=== PATIENT | female | born 1990 | race Caucasian/White ===

== ENCOUNTER 2021-12-24 11:38 | Outpatient (REF) | payer MEDICAID, SELFPAY | END 2021-12-24 11:39 | disposition home or self-care (01) | LOC: HO.SH 11:38 | PROVIDERS: Visit Provider Internal Medicine | DX: Z01.118 Encounter for examination of ears and hearing with other abnormal findings (principal); H93.293 Other abnormal auditory perceptions, bilateral | CPT/HCPCS: 92550; 92552; 92556; 92588 ==

== ENCOUNTER 2022-01-07 12:54 | Outpatient (RCR) | payer MEDICAID, SELFPAY ==
--- NOTE | 2022-03-09 16:47 | MHC.SP.ADU ---
Addendum entered and electronically signed by Aiyana Ayala MA, CCC-CHANGEOVER OPERATOR 03/09/22 17:01: As a clinical solar panel installation supervisor, I have reviewed and agree with the content of this report. Original Note: Referring provider: Gloria Wyatt MD Reason for Referral: Testing cognition Type of Treatment: 32007 Standardized Cognitive Performance Testing, per hour Date of Plan of Treatment: 01/07/22 Onset of Symptoms/Illness: 89 Date Treatment Started: 01/07/22 Medical Diagnosis: Borderline Personality Disorder, Bipolar Disorder, General Anxiety Disorder, Depression, PTSD, Developmental disorder/delay Primary Speech Language Diagnosis: R41.841 Cognitive communication disorder History Raulito is a 31 year old bilingual female referred for a speech and language evaluation. Raultio has spoken both Camb[place]ian and [place] since and reports [place] Citizen as her primary language. Raulito was evaluated by audiology on 12/24/21 at [facility] which found hearing in both ears to be of typical hearing status. The audiological team referred her for a speech and language cognitive evaluation to assist in determining the source of Raulito?s reported listening difficulties. Raulito received her associate?s degree in liberal arts and began her bachelor?s in psychology. Raulito reports she put school on hold because of her difficulties with memory and managing stress. She reports that she stopped reaching out to her instructor and advisor. Raulito is not currently working and reported feeling anxiety about beginning work because she doesn't want to do it wrong. Raulito?s goal is to resume her bachelor?s degree in May 2022. During the interview process, Raulito mentioned she felt nervous and anxious which she believes manifests as burping and hiccups. When asked about her concerns, Raulito responded ?I don?t even know where to begin and start.? Raulito reported challenges in memory, attention, understanding (receptive language), speaking (expressive language), and problem solving. Raulito reports having medical diagnoses of borderline personality disorder, bipolar disorder, generalized anxiety disorder, depression, PTSD, and developmental disorder/delay. 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 12/24/21 audiological exam found hearing testing to be WNL. Medication List: Paroxetine Buproprion *Other medications illegible on patient intake form Social History: Employment Status: Unemployed Highest level of education obtained: Completed Associate Deg. Current Living Situation: Lives in [facility] [facility] with her daugher and her partner. Sometimes her partner's child lives there. Assistive Devices: Glasses/Contacts Comment: Glasses not present during evaluation. Patient reports using glasses to read and to use phone. Past Speech Language Therapy: Patient reported having a speech and hearing evaluation after giving at 18 years old and being referred to ENT. Patient reported that she never went to ENT because she was too scared. Other Therapies Seen in Current Calendar Year: None Reported Speech, Language, Cognition difficulties: Understanding Attention Memory Cognition Speaking Problem Solving On patient intake form, Raulito reported frequently having difficulty with expressing thoughts, problem solving, and focusing/attention. She reported difficulty being understood by others, reading/writing, orientation/memory, and following directions. She also reported having difficulty with fluent speech/stuttering when emotional. Quality of Life: Raulito reports her difficulties having a large impact on her social and academic life including relationships, university, and employment. Patient Stated Goal of Speech-Language Therapy: To improve quality of life and refine memory and attention skills to be able return to school Assessment Raulito stated my memory sucks and that she only remembers the bad stuff. She provided the examples that she may forget what she is doing when she enters another room or forget what she is cleaning. Throughout the interview and evaluation process, Raulito was observed to respond to a different question than was asked by the clinician. Several times Raulito stated that she dissociated and requested the clinician to repeat a question or to remind her what she was doing. This was noted to happen more frequently as time passed. In one instance, Raulito stated Right now I forgot what I was talking about. I don't know what I'm talking about. Another time, she listed the word apple for the first time and then stated I just said that right? Raulito reports that in a quiet environment, she can ?hear clear? and can hear ?the smallest sounds.? Raulito reports that while having background noise is soothing and provides her privacy in her current living condition, it also makes it more difficult for her to hear. She stated that when she attempts to paraphrase what someone else says, Most of the time it's wrong. Raulito reports saying words backwards or incorrectly and provided an example of telling her daughter you have a butt on your hole instead of a hole on your butt when she noticed a hole in her daughter's pants. Raulito reports she has an easier time when people are willing to learn and understand. Throughout the evaluation Raulito was observed to close her eyes, rub her head and eyes in concentration, have hiccups, and put head down on table. These behaviors demonstrated a possible indication of anxiety and nerves. COGNITIVE LINGUISTIC: RBANS: The Repeatable Battery for the Assessment of Neuropsychological Status (RBANS-Updated Form A) assesses aspects of cognitive memory, language, and attention skills. The RBANS is considered a screening battery for cognitive function and is repeatable for the purpose of evaluating any changes in function. It is intended for use with adolescents and adults, ages 12 to 89 years. This evaluation was conducted in [place] per Raulito?s request and she was informed she could provide responses in either [place] or Cambodian. Composite domains assessed in this evaluation are: Immediate Memory, Visuospatial/Constructional, Language, Attention, and Delayed Memory. Assessed domains and their scores are summarized below: Immediate Memory: This subtest assesses the individual's ability to remember information immediately after it is presented. Index score: 69 Percentile: 2 Interpretation: Extremely Low Visuospatial/Constructional: This subtest assesses the individual's ability to perceive spatial relations and to construct a spatially accurate copy of a drawing. Index score: 75 Percentile: 5 Interpretation: Borderline Language: This subtest assesses the individual's ability to respond verbally to either naming or retrieving learned material. Index score: 104 Percentile: 61 Interpretation: Average Attention: This subtest assesses the individual's capacity to remember and manipulate both visually and orally presented information in short-term memory storage Index score: 68 Percentile: 2 Interpretation: Extremely Low Delayed Memory: This subtest assesses the individual's anterograde memory capacity. Low scores indicate difficulties with recognition and retrieval of information from long-term memory stores. Index score: 83 Percentile: 13 Interpretation: Low Average Overall Score: Total scale: 75 Percentile: 5 Interpretation: Borderline ANALYSIS: Raulito's performance on language tasks including picture naming and semantic fluency was stronger than other evaluation domains. Raulito was able to name 9 out of 10 images presented and name 23 different fruits and vegetables within 60 seconds. Iness performance was noticeably stronger with delayed recognition tasks as compared to recall tasks. When provided with a 10 word list read aloud by the clinician, Raulito correctly recalled 4 out of 10 words when asked to recite the list. When Raulito was provided the cue, Was ___ on the list? she correctly identified 9 out of 10 words. Raulito listed words which were phonetically similar but were not on the presented word list. For example, Raulito believed the words ?pattern? and ?pocket? were part of the word list that actually included the words ?package,? ?powder,? ?carpet,? and ?market.? Raulito was administered a story memory task, in which she was read aloud a short story by the clinician then asked to recall the details. This was done immediately after completion and following a short delay. Raulito consistently remembered the month ?September? as phonemically similar month, ?July.? Additionally, Raulito added details to her retell of the story that were part of previous test stimuli. Cloze phrases and phonemic cues helped to support recall. For example, the clinician provided the cue, two hotels and a res___ and Raulito immediately responded restaurant. This demonstrates that the use of memory strategies may support Raulito?s immediate and delayed memory. It is important to note that Inses underlying medical diagnoses could be contributing to or exacerbating her cognitive linguistic difficulties. Research has indicated that a variety of psychological diagnoses may have an impact on an individual?s overall cognitive functioning as well as their performance on the RBANS. Diagnoses mentioned in the research include anxiety, bipolar disorder, borderline personality disorder, and depression. Research has suggested that symptoms of anxiety and depression can have a negative effect on overall cognitive functioning. Individuals with a history of depression and diagnosis of borderline personality disorder were found to have a greater level of impairment on immediate memory and attention in comparison with controls. The diagnosis of borderline personality disorder was also noted to negatively impact delayed memory. Research on bipolar disorder indicated that individuals with bipolar disorder perform lower on the entirety of the RBANS, aside from picture naming and list recognition subtests, when compared to control subjects (Noam, Clara). Marcelle Santacruz (1998). Repeatable Battery for the Assessment of Neuropsychological Status [Manual]. Santiago PA: Izabella. AUDITORY PROCESSING SKILLS: TAPS-3 (The Test of Auditory Processing Skills) is an assessment of auditory skills that are necessary for the development, use, and understanding of language commonly utilized in academic and everyday activities. It is intended for use in children and adolescents ages 4:0 to 18:11. Because the TAPS-3 normative data is not reflective of individuals over the age of 21, this tool was administered informally to gather additional information for further screening of Adamaris auditory processing skills. The following subtests were administered: Number Memory Reversed: Raulito correctly repeated back strings of numbers in reverse order, two to four numbers long, with 83% accuracy. With 5 or 6 digits, she recalled 3 to 4 correct digits out of order. Sentence Memory: Raulito was asked to repeat back sentences of varying lengths after listening to the clinician?s model. Raulito was able to repeat back sentences of 4 or less words without error. Longer sentences (up to 20 words) resulted in increased errors. Raulito often omitted specific details when restating sentences. For example, Raulito recalled The paint is on the top shelf and omitted of the cupboard and by the window. Auditory Comprehension: Raulito was asked to answer questions pertaining to auditory passages of increasing length and complexity read aloud to her. This task is intended to assess how well the individual understands spoken information. Raulito made frequent errors when recalling names. At times Raulito replaced a target name with a phonemically similar name, generated an unrelated name, or stated ?I forgot? or ?somebody.? Raulito presented with greater challenges as length and complexity of passages increased to 3 or more sentences. Auditory Reasoning: This task is intended to assess higher-order linguistic processing related to implied messages (i.e. understanding jokes, riddles, inferences, and abstractions). Raulito demonstrated difficulty with test items consisting of expressions. Expressions were sometimes interpreted more literally. For example, when provided a sentence that included the expression ?in the dark,? Adamaris responded that the electricity went out. When information was not provided directly, Raulito presented with difficulty understanding the implied meaning of a passage. For example, when provided the passage, ?After Luc found out that he was allergic to pet fur, he asked his parents for a pair of pet frogs. His parents said that was a good idea.? Raulito was then asked, ?Why would Luc?s parents like his idea of getting frogs?? Raulito responded, ?In case one dies.? Chantal Xavier & Merlyn Byrne (2005). The Test of Auditory Processing Skills - Third Edition [Manual]. MAGDA Cheek: Academic Therapy Publications Impressions and Recommendations Summary: Based on the results of this evaluation, Raulito presents with moderate to severe cognitive linguistic impairment marked by difficulties in the area of immediate memory, delayed memory, and attention. Raulito?s underlying psychological diagnoses may be contributing to or exacerbating these areas of cognitive linguistic difficulties. Raulito would benefit from outpatient speech and language therapy to support improvement in these areas and to support Raulito in her goals of improving her quality of life and academic goals. Raulito has demonstrated the use of prompts and cues has the potential improve her performance in cognitive linguistic tasks. Raulito?s goal to return to university to complete her bachelor?s degree provides her with high motivation for speech and language services. Impact on Daily Function/Activity Limitations: Daily Activities: Moderate Interpersonal Interactions: Moderate Education: Moderate Employment: Moderate Community: Moderate Prognosis for Improvement: Good Recommendation for Speech Therapy: Outpatient Speech Therapy Frequency/Duration: 1x weekly x 12 weeks Date Range for Service Requested: Time to Reassess: 6 months Halfway Goals: Raulito will improve attention, immediate memory, and delayed memory. Short Term Goals: Raulito will independently recall 2-3 memory strategies with 100% accuracy. Raulito will listen to short paragraph (3-5 sentences) and answer comprehension questions with 80% accuracy (immediate recall) when provided with minimal assistance and no more than one repetition. Raulito will listen to short paragraph (3-5 sentences) and answer comprehension questions with 80% accuracy after 5 minute delay when provided with minimal assistance and no repetitions. Raulito will recall list of 5 items presented to her orally with 80% accuracy when provided with moderate assistance. Raulito will listen to auditory information and make note of pertinent information with no more than 2 repetitions in 80% of trials in a near distraction-free environment. Recommended Referrals to be Discussed with Primary Care Provider: Audiological Evaluation Comment: Audiology team at [facility] recommended a follow-up hearing screening in 6 months Recommend to continue with psychologist due to psychoemotional concerns Patient Education Completed: Yes Patient/Caregiver Education: Described Results of Evaluation It was a pleasure to meet and work with Raulito. If you have any questions about the contents of this report, do not hesitate to contact me at [phone] or [email or web address] Auditor Clinican/Clinical Fellow: Yes: Ginna Moreno M.A., CF-CHANGEOVER OPERATOR Supervisory Statement: Yes Speech Language Pathologist: Aiyana Ayala M.A., CCC-CHANGEOVER OPERATOR
== END 2022-03-12 13:30 | disposition still patient (30) ==
LOC: HO.SH 12:54
PROVIDERS: Visit Provider Internal Medicine
DX: R41.841 Cognitive communication deficit (principal)
CPT/HCPCS: 96125

== ENCOUNTER 2022-07-17 13:47 | Emergency (ER) | payer MEDICAID, SELFPAY ==
--- NOTE | ~2022-07-17 | XR_ITS ---
EXAMINATION: XR FOOT, RIGHT CLINICAL INFORMATION: Great toe and foot injury COMPARISON: None TECHNIQUE: AP, lateral, and oblique views of the right foot. FINDINGS: Minimally displaced oblique fracture of the distal portion of the great toe proximal phalanx. No definite intra-articular extension. There is a 7 mm lucent lesion of bone with narrow zone of transition in the proximal phalanx at the level of the fracture. No matrix mineralization. No periostitis or osseous destruction. No other fracture. Joint spaces are maintained. XR/XR foot RT 2V IMPRESSION: 1. Minimally displaced fracture of the distal portion of the great toe proximal phalanx. 2. 7 mm lucent lesion of bone in the proximal phalanx with nonaggressive features. Differential considerations include enchondroma or bone cyst most likely. No aggressive margin features. Suggest attention on follow-up.
--- NOTE | 2022-07-17 13:50 | ED_ITS ---
HPI - General Adult General Chief complaint: Extremity Injury, Lower <ALE Burger - Last Filed: 07/17/22 13:54> Stated complaint: Right Big toe Swollen <ALE Burger - Last Filed: 07/17/22 13:54> Time Seen by Provider: 07/17/22 14:12 <ALE Burger - Last Filed: 07/17/22 13:54> Source: patient <Jenny Smith CNP - Last Filed: 07/17/22 15:11> Mode of arrival: ambulatory <Jenny Smith CNP - Last Filed: 07/17/22 15:11> Limitations: no limitations <Jenny Smith CNP - Last Filed: 07/17/22 15:11> History of Present Illness HPI narrative: Patient is a 32-year-old female who presents emergency department for evaluation of traumatic right great toe pain. She reports at 1200 her toe was stepped on and she heard a loud pop. She looked at her toe and it appeared to be deformed so she pulled it straight thinking this would help. She continues to have severe pain. Pain is made worse with weight-bearing and with dependent resting of the lower extremity in a sitting position. <Jenny Smith CNP - Last Filed: 07/17/22 15:11> Related Data Allergies/adverse reactions: Allergies Allergy/AdvReac Type Severity Reaction Status Date / Time amoxicillin [AMOXICILLIN] Allergy Unknown HIVES Verified 07/17/22 13:51 <ALE Burger - Last Filed: 07/17/22 13:54> Review of Systems Review of Systems: Yes all other systems are reviewed and are negative <Jenny Smith CNP - Last Filed: 07/17/22 15:11> PMFSH Past Medical History Attestation statement: The following information was validated with the patient. <Jenny Smith CNP - Last Filed: 07/17/22 15:11> Source: old records reviewed <Jenny Smith CNP - Last Filed: 07/17/22 15:11> Social History Social History: Social History Advance Directives: No Advance Directives Information Provided: Yes <ALE Burger - Last Filed: 07/17/22 13:54> Physical Exam ED Vital Signs: Vital Signs - 24 hr 07/17/22 13:51 Temperature 98.5 F Pulse Rate 88 Respiratory Rate 16 Blood Pressure 119/71 Pulse Oximetry 97 Oxygen Delivery Method Room Air BMI result Body Mass Index 22.3 <ALE Burger - Last Filed: 07/17/22 13:54> Vital Signs - 24 hr 07/17/22 13:51 Temperature 98.5 F Pulse Rate 88 Respiratory Rate 16 Blood Pressure 119/71 Pulse Oximetry 97 Oxygen Delivery Method Room Air BMI result Body Mass Index 22.3 <Jenny Smith CNP - Last Filed: 07/17/22 15:11> Appearance: Alert.?Oriented to person, place and time. No acute distress.?Normal affect. CVS: Heart sounds normal. Normal heart rate and rhythm.? Pulses normal.?? Respiratory: No respiratory distress.? Lung sounds clear to auscultation bilaterally?? Skin: Skin warm and dry.? Normal skin color.? Extremities: No lower extremity edema.? No calf ttp?right great toe with bruising localized swelling, localized swelling and erythema over the distal 1st through 3rd metatarsals. Neuro: Moves all extremities spontaneously. Sensation intact bilaterally. Ambulates with antalgic gait <Jenny Smith CNP - Last Filed: 07/17/22 15:11> Course Course Course Narrative: RME performed by Magda Rodriguez PA-C. Patient is a 32 year old female presenting to the emergency department with right great toe pain. Patient states that her toe was stepped on and she heard a loud pop. Patient states she is continuing to have pain today. XR ordered. Patient placed back in the waiting room pending results and room availability. <ALE Burger - Last Filed: 07/17/22 13:54> Medical Decision Making Medical Decision Making MDM Narrative: Patient is a 32-year-old female who presents emergency department for evaluation of traumatic right great toe pain. Reviewed XR imaging obtained from RME which is consistent with minimally displaced fracture of the distal portion of the great toe proximal phalanx. First and second digit kasandra taped, placed in a postop shoe. She has not yet taken any acetaminophen or ibuprofen, she does not prefer to take any medications or anything that may be sedating. Discussed follow-up with orthopedics. Reviewed worrisome signs and symptoms that would warrant re-evaluation in the emergency department. All questions were answered. Departed in stable condition. <Jenny Lambert RAQUEL Smith - Last Filed: 07/17/22 15:11> Differential Diagnosis Differential Diagnoses: The differential diagnosis associated with the presentation includes (Fracture, dislocation, contusion of the toe, tendon injury) <Jenny Trippsantiago Smith CNP - Last Filed: 07/17/22 15:11> Independent Interpretation I performed an independent interpretation of an: Plain X-Ray <Jenny Trippsantiago Smith CNP - Last Filed: 07/17/22 15:11> Radiology Impression Discussion of test interpretation with radiology: I have reviewed the radiologist's reading. (I have personally interpreted x-ray imaging and agree with radiologist impression) <Jenny Lambert RAQUEL Smith - Last Filed: 07/17/22 15:11> Radiologist Impression: XR/XR foot RT 2V IMPRESSION: 1.? Minimally displaced fracture of the distal portion of the great toe proximal phalanx. 2.? 7 mm lucent lesion of bone in the proximal phalanx with nonaggressive features. Differential considerations include enchondroma or bone cyst most likely. No aggressive margin features. Suggest attention on follow-up. <Jennyabelino Smith CNP - Last Filed: 07/17/22 15:11> Prescription Management I considered prescription management with: Pain Medication <Jennyabelino Smith CNP - Last Filed: 07/17/22 15:11> Discharge Plan Discharge Clinical Impression: Closed fracture of great toe of right foot <ALE Burger - Last Filed: 07/17/22 13:54> Patient Disposition: Home, Self-Care <ALE Burger - Last Filed: 07/17/22 13:54> Instructions: Toe Fracture (ED), Post Surgical Shoe (ED) <ALE Burger Last Filed: 07/17/22 13:54> Additional Instructions: Apply ice to the area for 10-15 minutes 4-6 times daily. Elevate the foot when possible, avoid prolonged sitting Use the shoe as provided any time standing walking You can take ibuprofen 200 mg, 3 tablets (600mg) every 6-8 hours as needed for pain, in addition to Tylenol 500 mg, 2 tablets (1,000mg) every 4-6 hours as needed for pain, but not to exceed 3 doses daily (3,000mg). Contact orthopedic office first thing Tuesday morning to arrange for a follow-up visit. <ALE Burger - Last Filed: 07/17/22 13:54> Referrals: Luzma Bermudez PA-C [Physician Child And Family Services Specialist] - <ALE Burger - Last Filed: 07/17/22 13:54>
[2022-07-17 13:51] VITALS: BP 119/71; PULSE 88; RESP 16; TEMP 36.9; O2SAT 97; BMI 22.3
== END 2022-07-17 15:36 | disposition home or self-care (01) ==
PROVIDERS: Emergency Provider Emergency Medicine
DX: S92.421A Displaced fracture of distal phalanx of right great toe, initial encounter for closed fracture (principal); W50.0XXA Accidental hit or strike by another person, initial encounter; Y93.9 Activity, unspecified; Y92.9 Unspecified place or not applicable; Y99.9 Unspecified external cause status
CPT/HCPCS: 73620; 99283

== ENCOUNTER 2022-08-02 16:49 | Outpatient (REF) | payer MEDICAID, SELFPAY ==
--- NOTE | ~2022-08-02 | XR_ITS ---
EXAMINATION: XR FOOT, RIGHT CLINICAL INFORMATION: Pain in foot. COMPARISON: None TECHNIQUE: AP, lateral, and oblique views of the right foot. FINDINGS: Again visualized is a pathological fracture involving the distal and proximal phalanx 1st digit. There is a round lucency in the distal segment of proximal phalanx where the fracture traverses through. There is overlapping of fracture fragments on the lateral view. Mild soft tissue swelling is seen. No additional bony abnormality seen. XR/XR foot RT min 3V IMPRESSION: Pathologic fracture distal end proximal phalanx 1st digit with mild soft tissue swelling. There is a round lucency in the distal segment of proximal phalanx where the fracture traverses through. No major change from recent right foot exam 07/17/2022.
== END 2022-08-02 16:50 | disposition home or self-care (01) ==
LOC: HO.HOSX 16:49
PROVIDERS: Visit Provider Physician Assistant
DX: S92.411A Displaced fracture of proximal phalanx of right great toe, initial encounter for closed fracture (principal)
CPT/HCPCS: 73630; 99202

== ENCOUNTER 2022-08-18 10:10 | Outpatient (RCR) | payer MEDICAID, SELFPAY ==
--- NOTE | 2022-08-18 11:55 | MHC.PT.EP ---
[facility] [place] Office [place] Office [place] Office [address] Bhakta [address] [phone] F: [phone] F: [phone] F: [phone] F: [phone] Physical Therapy Plan of Care Date of Evaluation: Date of Surgery: Diagnosis: closed fracture of the great toe on the R foot. Assessment: Patient is a 32 year old R handed female who presents with s/s consistent with closed fracture of great toe or R foot. 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 Patient past medical history includes borderline personality disorder, asthma, learning disability. Current impairments include pain, posture, ROM, strength, balance, activity tolerance and functional mobility. Functional limitations include decreased ability to walk, stand, dance, sit, sleep and perform all standing activities. Patient is motivated with good rehab potential. Skilled PT will address impairments and functional limitations in order to achieve goals. Frequency and Duration: The patient will be seen 2x/week for 5 weeks Short Term Goals: I with HEP - 2 weeks Full pain free AROM - 3 weeks symmetrical gait mechanics with shoe - 3 weeks Heel Gummer Goals: Strength 4+/5 grossly - 5 weeks restore PLOF without increased pain - 5 weeks TTP absent - 5 weeks. Treatment Plan: Modalities to reduce pain, spasms and effusion. Manual therapy to restore motion and function. Therapeutic exercise to improve strength and flexibility. Neuromuscular re-education for posture and balance. Therapeutic activities to return to functional activities of daily living. Electronically signed by: James Adler PT Please sign and return to therapist. Thank you for your referral.
--- NOTE | 2022-11-02 07:29 | MHC.PT.DC ---
[facility] [place] Office [place] Office [place] Office [address] Jannet Bhakta [address] [phone] F: [phone] F: [phone] F: [phone] F: [phone] Physical Therapy Discharge Report Diagnosis: closed fracture of the great toe on the R foot. Date of Surgery: Date of Evaluation: 08/18/22 Date of Discharge: 09/03/22 Treatments to Date: 1 Cancellations to Date: No Shows to Date: Discharge Status: Patient Elected to Stop Discharge Summary: Did not return after evaluation. Patient is a 32 year old R handed female who presents with s/s consistent with closed fracture of great toe or R foot. 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 Patient past medical history includes borderline personality disorder, asthma, learning disability. Current impairments include pain, posture, ROM, strength, balance, activity tolerance and functional mobility. Functional limitations include decreased ability to walk, stand, dance, sit, sleep and perform all standing activities. Patient is motivated with good rehab potential. Skilled PT will address impairments and functional limitations in order to achieve goals. Electronically signed by: James Adler, PT Please sign and return to therapist. Thank you for your referral.
== END 2022-11-02 07:29 | disposition home or self-care (01) ==
LOC: HO.PTCHIC 10:10
PROVIDERS: PCP Physician Assistant; Visit Provider Physician Assistant
DX: S92.401A Displaced unspecified fracture of right great toe, initial encounter for closed fracture (principal)
CPT/HCPCS: 97110; 97162

== ENCOUNTER 2022-11-11 11:00 | Outpatient (RCR) | payer MEDICAID, OTHER, SELFPAY | END 2023-05-17 13:13 | disposition home or self-care (01) | LOC: HO.SH 11:00 | PROVIDERS: Visit Provider Internal Medicine | DX: R41.841 Cognitive communication deficit (principal) | CPT/HCPCS: 92507 ==

== ENCOUNTER 2023-07-01 11:00 | Outpatient (RCR) | payer OTHER, SELFPAY ==
--- NOTE | 2023-04-18 14:10 | MHC.SL.SOA ---
Referring Provider: Gloria Wyatt MD Reason for Referral: Testing cognition Date of Plan of Treatment:01/07/22 Onset of Symptoms/Illness:89 Date Treatment Started:01/07/22 Medical Diagnosis: Primary Speech Language Diagnosis:R41.841 Cognitive communication disorder Number of Authorized Visits Remaining: Authorization End Date:04/21/23 Reason for Visit:Distance Visit using synchronous video Subjective:Raulito is a 32 year old bilingual Kazakh-Luxembourgish female. Raulito reports she is a simultaneous bilingual with Kazakh as her primary language. Raulito was evaluated by audiology on 12/24/21 at [facility] which found hearing in both ears to be of typical hearing status. Raulito was evaluated by speech on 01/07/22 and began intervention in February 2022. Raulito took a break from speech therapy roughly December-February 2023. She started speech therapy again at the end of February 2023. Raulito received her associate?s degree in liberal arts and began her bachelor?s in psychology. Raulito reports she put school on hold because of her difficulties with memory and managing stress. She reports that she stopped reaching out to her instructor and advisor. Raulito is not currently working and reported feeling anxiety about beginning work because she doesn't want to do it wrong. Raulito?s goal is to resume her bachelor?s degree in May 2022. During the interview process, Raulito mentioned she felt nervous and anxious which she believes manifests as burping and hiccups. When asked about her concerns, Raulito responded ?I don?t even know where to begin and start.? Raulito reported challenges in memory, attention, understanding (receptive language), speaking (expressive language), and problem solving. Raulito reports having medical diagnoses of borderline personality disorder, bipolar disorder, generalized anxiety disorder, depression, PTSD, and developmental disorder/delay. Raulito arrived two minutes late to today's session. She was in positive spirits. Objective: This clinician reviewed and updated goals in discussion w/ Raulito. Raulito and this clinician agreed that current goals are all still appropriate to target in speech therapy sessions. RBANS scores from December 2021 and September 2022 were also discussed/compared. Raulito showed improvement in the following domains: immediate memory, visuospatial/constructional, attention, and delayed memory. Plan to incorporate spaced retrieval for memory. Raulito reported that she has gotten involved with a dance center. She expressed having difficulty with longer dance sequences and is looking for this to be incorporated into her goals. Plan to incorporate visuospatial skills. Assessment: DECEMBER 2022 RBANS: (Subtest: Index score) Immediate memory: 81 Visuospatial/Constructional: 78 Language:87 Attention: 85 Delayed Memory: 91 Total scale: December COGNITIVE LINGUISTIC: RBANS: The Repeatable Battery for the Assessment of Neuropsychological Status (RBANS-Updated Form A) assesses aspects of cognitive memory, language, and attention skills. The RBANS is considered a screening battery for cognitive function and is repeatable for the purpose of evaluating any changes in function. It is intended for use with adolescents and adults, ages 12 to 89 years. This evaluation was conducted in Kazakh per Raulito?s request and she was informed she could provide responses in either Kazakh or Luxembourgish. Composite domains assessed in this evaluation are: Immediate Memory, Visuospatial/Constructional, Language, Attention, and Delayed Memory. Assessed domains and their scores are summarized below: Immediate Memory: This subtest assesses the individual's ability to remember information immediately after it is presented. Index score: 69 Percentile: 2 Interpretation: Extremely Low Visuospatial/Constructional: This subtest assesses the individual's ability to perceive spatial relations and to construct a spatially accurate copy of a drawing. Index score: 75 Percentile: 5 Interpretation: Borderline Language: This subtest assesses the individual's ability to respond verbally to either naming or retrieving learned material. Index score: 104 Percentile: 61 Interpretation: Average Attention: This subtest assesses the individual's capacity to remember and manipulate both visually and orally presented information in short-term memory storage Index score: 68 Percentile: 2 Interpretation: Extremely Low Delayed Memory: This subtest assesses the individual's anterograde memory capacity. Low scores indicate difficulties with recognition and retrieval of information from long-term memory stores. Index score: 83 Percentile: 13 Interpretation: Low Average Overall Score: Total scale: 75 Percentile: 5 Interpretation: Borderline ANALYSIS: Raulito's performance on language tasks including picture naming and semantic fluency was stronger than other evaluation domains. Raulito was able to name 9 out of 10 images presented and name 23 different fruits and vegetables within 60 seconds. Raulito?s performance was noticeably stronger with delayed recognition tasks as compared to recall tasks. When provided with a 10 word list read aloud by the clinician, Raulito correctly recalled 4 out of 10 words when asked to recite the list. When Raulito was provided the cue, Was ___ on the list? she correctly identified 9 out of 10 words. Raulito listed words which were phonetically similar but were not on the presented word list. For example, Raulito believed the words ?pattern? and ?pocket? were part of the word list that actually included the words ?package,? ?powder,? ?carpet,? and ?market.? Raulito was administered a story memory task, in which she was read aloud a short story by the clinician then asked to recall the details. This was done immediately after completion and following a short delay. Raulito consistently remembered the month ?May? as phonemically similar , ?July.? Additionally, Raulito added details to her retell of the story that were part of previous test stimuli. Cloze phrases and phonemic cues helped to support recall. For example, the clinician provided the cue, two hotels and a res___ and Raulito immediately responded restaurant. This demonstrates that the use of memory strategies may support Raulito?s immediate and delayed memory. It is important to note that Raulito?s underlying medical diagnoses could be contributing to or exacerbating her cognitive linguistic difficulties. Research has indicated that a variety of psychological diagnoses may have an impact on an individual?s overall cognitive functioning as well as their performance on the RBANS. Diagnoses mentioned in the research include anxiety, bipolar disorder, borderline personality disorder, and depression. Research has suggested that symptoms of anxiety and depression can have a negative effect on overall cognitive functioning. Individuals with a history of depression and diagnosis of borderline personality disorder were found to have a greater level of impairment on immediate memory and attention in comparison with controls. The diagnosis of borderline personality disorder was also noted to negatively impact delayed memory. Research on bipolar disorder indicated that individuals with bipolar disorder perform lower on the entirety of the RBANS, aside from picture naming and list recognition subtests, when compared to control subjects (Noam, Clara). Marcelle Santacruz (1998). Repeatable Battery for the Assessment of Neuropsychological Status [Manual]. [place] GA: Izabella. AUDITORY PROCESSING SKILLS: TAPS-3 (The Test of Auditory Processing Skills) is an assessment of auditory skills that are necessary for the development, use, and understanding of language commonly utilized in academic and everyday activities. It is intended for use in children and adolescents ages 4:0 to 18:11. Because the TAPS-3 normative data is not reflective of individuals over the age of 21, this tool was administered informally to gather additional information for further screening of Iness auditory processing skills. The following subtests were administered: Number Memory Reversed: Raulito correctly repeated back strings of numbers in reverse order, two to four numbers long, with 83% accuracy. With 5 or 6 digits, she recalled 3 to 4 correct digits out of order. Sentence Memory: Raulito was asked to repeat back sentences of varying lengths after listening to the clinician?s model. Raulito was able to repeat back sentences of 4 or less words without error. Longer sentences (up to 20 words) resulted in increased errors. Raulito often omitted specific details when restating sentences. For example, Raulito recalled The paint is on the top shelf and omitted of the cupboard and by the window. Auditory Comprehension: Raulito was asked to answer questions pertaining to auditory passages of increasing length and complexity read aloud to her. This task is intended to assess how well the individual understands spoken information. Raulito made frequent errors when recalling names. At times Raulito replaced a target name with a phonemically similar name, generated an unrelated name, or stated ?I forgot? or ?somebody.? Raulito presented with greater challenges as length and complexity of passages increased to 3 or more sentences. Auditory Reasoning: This task is intended to assess higher-order linguistic processing related to implied messages (i.e. understanding jokes, riddles, inferences, and abstractions). Raulito demonstrated difficulty with test items consisting of expressions. Expressions were sometimes interpreted more literally. For example, when provided a sentence that included the expression ?in the dark,? Iness responded that the electricity went out. When information was not provided directly, Raulito presented with difficulty understanding the implied meaning of a passage. For example, when provided the passage, ?After Luc found out that he was allergic to pet fur, he asked his parents for a pair of pet frogs. His parents said that was a good idea.? Raulito was then asked, ?Why would Luc?s parents like his idea of getting frogs?? Raulito responded, ?In case one dies.? Chantal Xavier & [place], R. (2005). The Test of Auditory Processing Skills - Third Edition [Manual]. MAGDA Cheek: Academic Therapy Publications Notes: Next session is scheduled for 04/22/23 at 11am. Plan: Goal # : Raulito will independently recall 2-3 memory strategies with 100% accuracy. Status of Goal: Goal Continued Goal # : Raulito will listen to or read short paragraph (3-5 sentences) and answer comprehension questions with 80% accuracy (immediate recall) when provided with minimal assistance and no more than one repetition. Raulito will listen to or read short paragraph (3-5 sentences) and answer comprehension questions with 80% accuracy after 5 minute delay when provided with minimal assistance and no repetitions. Status of Goal: Goal Continued Goal # : Raulito will recall list of 5 items presented to her orally with 80% accuracy when provided with moderate assistance. Status of Goal: Goal Continued Goal # : Raulito will listen to auditory information or read written information and make note of pertinent information with no more than 2 repetitions in 80% of trials in a near distraction-free environment. Status of Goal: Goal Continued Seen by: Graduate/Clinical Fellow: No Supervisory Statement: f_Reg Query Last Value , MHC.AU.SIGNATUR Speech Language Pathologist: Ginna Moreno M.A., CCC-THROAT CUTTER
--- NOTE | 2023-07-27 16:41 | MHC.SL.SOA ---
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 Raulito reports she is a simultaneous bilingual with Peruvian as her primary language. Raulito was evaluated by audiology on 12/24/21 at [facility] which found hearing in both ears to be of typical hearing status. Raulito was evaluated by speech on 01/07/22 and began intervention in February 2022. Raulito took a break from speech therapy roughly December-February 2023. She started speech therapy again at the end of February 2023. Raulito received her associate?s degree in liberal arts and began her bachelor?s in psychology. Raulito reports she put school on hold because of her difficulties with memory and managing stress. She reports that she stopped reaching out to her instructor and advisor. Raulito is not currently working and reported feeling anxiety about beginning work because she doesn't want to do it wrong. Raulito?s goal is to resume her bachelor?s degree in May 2022. During the interview process, Raulito mentioned she felt nervous and anxious which she believes manifests as burping and hiccups. When asked about her concerns, Raulito responded ?I don?t even know where to begin and start.? Raulito reported challenges in memory, attention, understanding (receptive language), speaking (expressive language), and problem solving. Raulito reports having medical diagnoses of borderline personality disorder, bipolar disorder, generalized anxiety disorder, depression, PTSD, and developmental disorder/delay. Assessment: DECEMBER 2022 RBANS: (Subtest: Index score) Immediate memory: 81 Visuospatial/Constructional: 78 Language:87 Attention: 85 Delayed Memory: 91 Total scale: 81 Plan: Plan is to discharge patient d/t inconsistent attendance. Since 05/27/2023, Raulito has attended 1 of 8 scheduled sessions, 3 no shows, and 3 cancellations <24 hours. This clinician and Raulito had a meeting on 07/01 to discuss plan for speech therapy moving forward, Raulito has cancelled all three sessions since this date. Raulito was informed about discharge via phone on 07/27/2023. Should Raulito resume speech therapy at a later date, the following goals are recommended: Goal # : Raulito will independently recall 2-3 memory strategies with 100% accuracy. Status of Goal: Goal Continued Goal # : Raulito will listen to or read short paragraph (3-5 sentences) and answer comprehension questions with 80% accuracy (immediate recall) when provided with minimal assistance and no more than one repetition. Raulito will listen to or read short paragraph (3-5 sentences) and answer comprehension questions with 80% accuracy after 5 minute delay when provided with minimal assistance and no repetitions. Status of Goal: Goal Continued Goal # : Raulito will recall list of 5 items presented to her orally with 80% accuracy when provided with moderate assistance. Status of Goal: Goal Continued Goal # : Raulito will listen to auditory information or read written information and make note of pertinent information with no more than 2 repetitions in 80% of trials in a near distraction-free environment. Status of Goal: Goal Continued Seen by: Graduate/Clinical Fellow: No Supervisory Statement: f_Reg Query Last Value , MHC.AU.SIGNATUR Speech Language Pathologist: Ginna Moreno M.A., CCC-CASTING MACHINE CONTROL BOARD OPERATOR
== END 2023-07-28 08:42 | disposition still patient (30) ==
LOC: HO.SH 11:00
PROVIDERS: Visit Provider Internal Medicine
DX: H93.25 Central auditory processing disorder (principal); R41.841 Cognitive communication deficit
CPT/HCPCS: 92507